=== PATIENT | female | born 1970 | race Caucasian/White ===

== ENCOUNTER 2020-10-06 21:41 | Emergency (ER) | payer BC, OTHER ==
[~2020-10-06] VITALS: Ht 167.6 cm; Wt 69.3 kg
[2020-10-06] MEDS ORDERED: ASPIRIN 81 MG TABLET CHEW ONE (22:18)
[2020-10-06] MEDS ORDERED: MORPHINE SULFATE 4 MG/ML, 1ML ONE (22:18)
[2020-10-06] MEDS ORDERED: ONDANSETRON 2MG/ML, 2ML ONE (22:18)
[2020-10-06] MEDS ORDERED: ASPIRIN 81 MG TABLET CHEW PO ONE (22:30)
[2020-10-06] MEDS ORDERED: ONDANSETRON 2MG/ML, 2ML IVPush ONE (22:30)
[2020-10-06] MEDS ORDERED: MORPHINE SULFATE 4 MG/ML, 1ML IVPush PRN (22:30)
[2020-10-06] MEDS ORDERED: SODIUM CHLORIDE FLUSH 10ML SYR IVF ONE (22:30)
[2020-10-06 22:36] LABS: ALANINE AMINOTRANSFERASE 22 U/L (12-78); ALBUMIN 3.8 g/dL (3.4-5.0); ANION GAP 5 mmol/L (5-15); CALCIUM 8.3 mg/dL (8.5-10.1); CHLORIDE 106 mmol/L (98-107); CREATININE 1.03 mg/dL (0.55-1.02)
[2020-10-06 22:38] LABS: BASOPHILS % (AUTO) 0 % (0-1); EOSINOPHILS % (AUTO) 2 % (1-7); LYMPHOCYTES % (AUTO) 7 % (22-44); MEAN CORPUSCULAR HEMOGLOBIN 31.4 pg (27.0-34.8); MEAN CORPUSCULAR HGB CONC 32.5 g/dL (32.4-35.8); MEAN PLATELET VOLUME 9.5 fL (7.4-10.4); MONOCYTES % (AUTO) 4 % (2-9); NEUTROPHILS % (AUTO) 87 % (42-75); PLATELET COUNT 218 x10^3/uL (130-400); RED BLOOD COUNT 4.25 x10^6/uL (3.82-5.3); RED CELL DISTRIBUTION WIDTH 13.2 % (9.6-15.2)
[2020-10-06 22:40] LABS: ALKALINE PHOSPHATASE 52 U/L (45-117); BILIRUBIN,TOTAL 0.2 mg/dL (0.2-1.0); TOTAL PROTEIN 7.6 g/dL (6.4-8.2); TROPONIN I < 0.015 ng/mL (0.000-0.045)
[2020-10-06 23:35] LABS: MD SCAN
[2020-10-07 00:29] VITALS: BP 114/69
== END 2020-10-07 00:47 | disposition home or self-care (01) ==
LOC: ED 22:28
DX: R07.89 Other chest pain (principal); D72.829 Elevated white blood cell count, unspecified; R06.02 Shortness of breath; R42 Dizziness and giddiness
CPT/HCPCS: 36415; 71045; 80053; 84484; 84703; 85025; 93005; 99285; J2405; J2270

== ENCOUNTER 2020-10-15 08:23 | Inpatient (IN) | payer BC ==
[~2020-10-15] VITALS: Ht 167.6 cm; Wt 70.6 kg
--- NOTE | 2020-10-15 08:52 | NUR ---
CONTACT WITH PT. 50 YR OLD FEMALE HERE WITH C/O "HEART ISSUES" BEGAN 9 DAYS AGO, "HARD TIME BREATHING AND CHEST PRESSURE. I HAVE 2 LIABILITY CLAIMS REPRESENTATIVE APPTS PENDING, THEY SAID IF I WASNT GETTING BETTER TO COME HERE" PT IN NO ACUTE DISTRESS. PT WITH COUGH "IT HAS BEEN A WHILE, I THINK ITS ALLERGIES, BUT ITS NOT GOING AWAY" PT PLACED ON MONITORS, SR PER MONITOR, AUTO BP AND PULSE OX. PT UPDATED ON POC.
[2020-10-15] MEDS ORDERED: ASPIRIN 81 MG TABLET CHEW ONE (08:59)
[2020-10-15] MEDS ORDERED: ASPIRIN 81 MG TABLET CHEW PO ONE (09:00)
--- NOTE | 2020-10-15 09:04 | NUR ---
DR FLANNERY AT BEDSIDE TO EVAL PT
[2020-10-15] MEDS ORDERED: NITROGLYCERIN OINT 2%, 1GM TP ONE ×2 (09:17→09:30)
[2020-10-15 09:28] LABS: BASOPHILS % (AUTO) 1 % (0-1); EOSINOPHILS % (AUTO) 4 % (1-7); LYMPHOCYTES % (AUTO) 21 % (22-44); MEAN CORPUSCULAR HEMOGLOBIN 32.9 pg (27.0-34.8); MEAN CORPUSCULAR HGB CONC 34.4 g/dL (32.4-35.8); MEAN PLATELET VOLUME 8.9 fL (7.4-10.4); MONOCYTES % (AUTO) 7 % (2-9); NEUTROPHILS % (AUTO) 68 % (42-75); PLATELET COUNT 225 x10^3/uL (130-400); RED BLOOD COUNT 4.33 x10^6/uL (3.82-5.3); RED CELL DISTRIBUTION WIDTH 12.9 % (9.6-15.2)
[2020-10-15 09:29] LABS: MD NO
[2020-10-15] MEDS ORDERED: SODIUM CHLORIDE 0.9% 1,000ML IVBOLUS ONE (09:30)
[2020-10-15 09:34] LABS: ALANINE AMINOTRANSFERASE 14 U/L (12-78); ALBUMIN 3.9 g/dL (3.4-5.0); ANION GAP 6 mmol/L (5-15); CALCIUM 8.9 mg/dL (8.5-10.1); CHLORIDE 110 mmol/L (98-107); CREATININE 0.92 mg/dL (0.55-1.02)
[2020-10-15 09:38] LABS: ALKALINE PHOSPHATASE 57 U/L (45-117); BILIRUBIN,TOTAL 0.6 mg/dL (0.2-1.0); TOTAL PROTEIN 7.9 g/dL (6.4-8.2); TROPONIN I < 0.015 ng/mL (0.000-0.045)
--- NOTE | 2020-10-15 10:06 | NUR ---
PT DOZING INTERMITTENTLY, AROUSES EASILY. SR PER MONITOR. CHEST PRESSURE DECREASED TO 3/10. PT PROVIDED WITH WARM BLANKET. NO OTHER NEEDS EXPRESSED AT THIS TIME. PT AWARE OF WAITING FOR TEST RESULTS.
[2020-10-15] MEDS ORDERED: FENTANYL PF 100 MCG/2ML ONE (10:37)
--- NOTE | 2020-10-15 10:49 | NUR ---
PT MEDICATED FOR 2-3/10 CHEST PRESSURE (THAT COMES AND GOES) AND TAYLOR. PT STATES "I CAN FEEL IT, FRANKI MAKES YOU LIGHTHEADED. I FEEL RELAXED." PT CONT SR PER MONITOR. PT AWARE OF WAITING FOR ADMIT/ROOM ASSIGNMEN. NO NEEDS EXPRESSED AT THIS TIME.
[2020-10-15] MEDS ORDERED: FENTANYL PF 100 MCG/2ML IVPush ONE (11:00)
--- NOTE | 2020-10-15 11:08 | NUR ---
PT CURRENTLY DENIES TAYLOR OR CHEST PRESSURE. "THAT WORKED" NO NEEDS EXPRESSED AT THIS TIME.
[2020-10-15] MEDS ORDERED: FLUT16AE NS (12:08)
[2020-10-15] MEDS ORDERED: LEVO5TAB29 PO (12:13)
--- NOTE | 2020-10-15 12:16 | NUR ---
REPORT GIVEN TO TESSY SALAZAR, VSS, NO COMPLAINT OF PAIN,
[2020-10-15 13:22] VITALS: BP 97/62
[2020-10-15 14:00] VITALS: BP 97/68
[2020-10-15] MEDS ORDERED: ONDANSETRON ODT 4 MG PO PRN (14:00)
[2020-10-15] MEDS ORDERED: DOCUSATE 100 MG CAPSULE PO PRN (14:00)
[2020-10-15] MEDS ORDERED: ACETAMINOPHEN 325 MG TABLET PO PRN ×2 (14:00)
[2020-10-15] MEDS ORDERED: ONDANSETRON 2MG/ML, 2ML IVPush PRN (14:00)
[2020-10-15] MEDS ORDERED: POLYETHYLENE GLYCOL 17 GM PACKET PO PRN (14:00)
[2020-10-15] MEDS ORDERED: BISACODYL 10 MG SUPP PR PRN (14:00)
[2020-10-15] MEDS ORDERED: BUTALB/APAP/CAFFEINE 50MG/325MG/40MG PO PRN (14:00)
[2020-10-15] MEDS ORDERED: LABETALOL 5MG/ML, 20ML IVPush PRN (14:00)
[2020-10-15] MEDS: ENOXAPARIN 40 MG/0.4 ML SQ SCH (15:23)
[2020-10-15] MEDS: GUAIFENESIN/DM 200-20MG, 10ML UDC PO SCH ×2 (15:24→20:43)
[2020-10-15 16:15] LABS: C-REACTIVE PROTEIN, QUANT 0.28 mg/dL (0.02-0.49)
[2020-10-15 16:19] LABS: TROPONIN I < 0.015 ng/mL (0.000-0.045)
[2020-10-15 16:21] LABS: RAPID INFLUENZA A Negative (Negative); RAPID INFLUENZA B Negative (Negative)
[2020-10-15 16:37] LABS: FIBRINOGEN 291 mg/dL (200-340)
[2020-10-15 16:38] LABS: D-DIMER < 0.19 ug/mlFEU (0.00-0.52)
[2020-10-15] MEDS ORDERED: OMNIPAQUE 350 MG/ML, 100ML BOTTLE ONE (17:00)
[2020-10-15] MEDS: CEFTRIAXONE PMX 1GM/50ML 50 ML IV SCH (17:49)
[2020-10-15] MEDS: LACTATED RINGERS 1,000 ML IV SCH (17:49)
[2020-10-15] MEDS: AZITHROMYCIN 500 MG in SODIUM CHLORIDE 0.9% 250 ML IV SCH (18:42)
[2020-10-15 20:02] VITALS: BP 100/70
[2020-10-15] MEDS: FAMOTIDINE 20 MG TABLET PO SCH (20:43)
[2020-10-15 21:11] LABS: TROPONIN I < 0.015 ng/mL (0.000-0.045)
[2020-10-16 02:31] VITALS: BP 100/64
[2020-10-16 03:45] LABS: BASOPHILS % (AUTO) 1 % (0-1); EOSINOPHILS % (AUTO) 5 % (1-7); LYMPHOCYTES % (AUTO) 31 % (22-44); MEAN CORPUSCULAR HEMOGLOBIN 32.4 pg (27.0-34.8); MEAN CORPUSCULAR HGB CONC 33.6 g/dL (32.4-35.8); MEAN PLATELET VOLUME 9.2 fL (7.4-10.4); MONOCYTES % (AUTO) 7 % (2-9); NEUTROPHILS % (AUTO) 56 % (42-75); PLATELET COUNT 196 x10^3/uL (130-400); RED BLOOD COUNT 3.91 x10^6/uL (3.82-5.3); RED CELL DISTRIBUTION WIDTH 12.7 % (9.6-15.2)
[2020-10-16 03:47] LABS: MD NO
[2020-10-16 03:53] LABS: ALANINE AMINOTRANSFERASE 16 U/L (12-78); ALBUMIN 3.2 g/dL (3.4-5.0); ANION GAP 6 mmol/L (5-15); CHLORIDE 109 mmol/L (98-107)
[2020-10-16 04:02] LABS: ALKALINE PHOSPHATASE 47 U/L (45-117); BILIRUBIN,TOTAL 0.5 mg/dL (0.2-1.0); CHOL/HDL RATIO 2.6; CHOLESTEROL, TOTAL 154 mg/dL (140-239); HDL CHOL % 38 % (28-40); HDL CHOLESTEROL (DIRECT) 59 mg/dL (40-60); LDL CHOLESTEROL,CALCULATED 87 mg/dL (54-169); LDL/HDL RATIO 1.5 (0.5-3.0); TOTAL PROTEIN 6.3 g/dL (6.4-8.2); TRIGLYCERIDES 40 mg/dL (50-200); TROPONIN I < 0.015 ng/mL (0.000-0.045); VLDL CHOLESTEROL 8 mg/dL (0-25)
[2020-10-16] MEDS: GUAIFENESIN/DM 200-20MG, 10ML UDC PO SCH ×4 (05:47→20:14)
[2020-10-16 07:02] VITALS: BP 109/66
[2020-10-16] MEDS: LACTATED RINGERS 1,000 ML IV SCH (07:30)
[2020-10-16] MEDS: FAMOTIDINE 20 MG TABLET PO SCH ×2 (09:00→20:14)
[2020-10-16 09:43] LABS: TROPONIN I < 0.015 ng/mL (0.000-0.045)
[2020-10-16] MEDS: PANTOPRAZOLE 40MG TABLET PO SCH (11:00)
[2020-10-16] MEDS: methylPREDNISolone SOD SUCC 40 MG/ML IV SCH ×2 (12:05→20:14)
[2020-10-16 12:15] VITALS: BP 104/72
[2020-10-16] MEDS: ENOXAPARIN 40 MG/0.4 ML SQ SCH (15:00)
[2020-10-16] MEDS: CEFTRIAXONE PMX 1GM/50ML 50 ML IV SCH (16:38)
[2020-10-16] MEDS: AZITHROMYCIN 500 MG in SODIUM CHLORIDE 0.9% 250 ML IV SCH (16:39)
[2020-10-16 20:00] VITALS: BP 100/68
[2020-10-17 01:12] VITALS: BP 96/61
[2020-10-17] MEDS: LACTATED RINGERS 1,000 ML IV SCH (01:51)
[2020-10-17] MEDS: methylPREDNISolone SOD SUCC 40 MG/ML IV SCH ×3 (04:45→20:35)
[2020-10-17] MEDS: GUAIFENESIN/DM 200-20MG, 10ML UDC PO SCH ×4 (04:45→20:35)
[2020-10-17] MEDS: PANTOPRAZOLE 40MG TABLET PO SCH (04:46)
[2020-10-17 07:54] VITALS: BP 101/69
[2020-10-17] MEDS: FAMOTIDINE 20 MG TABLET PO SCH ×2 (09:49→20:35)
[2020-10-17 13:40] VITALS: BP 101/67
[2020-10-17] MEDS: CEFTRIAXONE PMX 1GM/50ML 50 ML IV SCH (14:48)
[2020-10-17] MEDS: ENOXAPARIN 40 MG/0.4 ML SQ SCH (14:48)
[2020-10-17] MEDS: AZITHROMYCIN 500 MG in SODIUM CHLORIDE 0.9% 250 ML IV SCH (17:47)
[2020-10-17 20:09] VITALS: BP 100/67
[2020-10-18 02:22] VITALS: BP 107/68
[2020-10-18] MEDS: PANTOPRAZOLE 40MG TABLET PO SCH (04:50)
[2020-10-18] MEDS: GUAIFENESIN/DM 200-20MG, 10ML UDC PO SCH ×4 (04:50→20:27)
[2020-10-18] MEDS: methylPREDNISolone SOD SUCC 40 MG/ML IV SCH ×3 (04:51→20:27)
[2020-10-18 06:53] VITALS: BP 102/66
[2020-10-18] MEDS: FAMOTIDINE 20 MG TABLET PO SCH ×2 (08:47→20:26)
[2020-10-18 12:26] VITALS: BP 99/60
[2020-10-18] MEDS: ENOXAPARIN 40 MG/0.4 ML SQ SCH (13:58)
[2020-10-18] MEDS: ALBUTEROL-IPRATROPIUM MDI INH INH SCH ×3 (14:57→20:27)
[2020-10-18] MEDS ORDERED: methylPREDNISolone SOD SUCC 40 MG/ML IV SCH (16:00)
[2020-10-18] MEDS: CEFTRIAXONE PMX 1GM/50ML 50 ML IV SCH (16:18)
[2020-10-18] MEDS: AZITHROMYCIN 500 MG in SODIUM CHLORIDE 0.9% 250 ML IV SCH (17:09)
[2020-10-18 20:05] VITALS: BP 101/70
[2020-10-18] MEDS ORDERED: AMOX1TAB64 PO (23:29)
[2020-10-18] MEDS ORDERED: AZIT500T PO (23:29)
[2020-10-18] MEDS ORDERED: Albuterol-Ipratropium Mdi INH (23:29)
[2020-10-18] MEDS ORDERED: GUAI5SYR PO (23:29)
[2020-10-18] MEDS ORDERED: PANT40TA6 PO (23:29)
[2020-10-18] MEDS ORDERED: PRED10TA PO (23:29)
[2020-10-19 01:14] VITALS: BP 103/58
[2020-10-19] MEDS: PANTOPRAZOLE 40MG TABLET PO SCH (05:19)
[2020-10-19] MEDS: GUAIFENESIN/DM 200-20MG, 10ML UDC PO SCH ×2 (05:19→11:15)
[2020-10-19] MEDS: methylPREDNISolone SOD SUCC 40 MG/ML IV SCH ×2 (05:19→11:45)
[2020-10-19] MEDS: ALBUTEROL-IPRATROPIUM MDI INH INH SCH ×2 (05:19→11:15)
[2020-10-19 06:14] VITALS: BP 119/62
[2020-10-19] MEDS: FAMOTIDINE 20 MG TABLET PO SCH (08:20)
== END 2020-10-19 12:00 | disposition home or self-care (01) | DRG 195 ==
LOC: ED 08:51 → EDIP 10:52 → 5SO 12:52 → 4EST 17:10 → 4WST 10-16 18:07 → DCLOUNGE 10-19 11:55
PROVIDERS: ADMIT Family Medicine; ATTEND Internal Medicine
DX: J18.9 Pneumonia, unspecified organism (principal); Z20.828 Contact with and (suspected) exposure to other viral communicable diseases; R94.31 Abnormal electrocardiogram [ECG] [EKG]
CPT/HCPCS: 36415; 71045; 71046; 71275; 80053; 80061; 82728; 83615; 83735; 83880; 84145; 84443; 84484; 85025; 85379; 85384; 86140; 87400; 93005; 93306; 96374; 96375; 99285; G0378; J0456; J0696; J1650; J3010; Q9967; J2920; J7030; J7050; J7120; U0003